=== PATIENT | female | born 1950 | race Caucasian/White ===

== ENCOUNTER 2018-02-11 15:17 | Emergency (ER) | payer MEDICARE | END 2018-02-11 16:06 | disposition home or self-care (01) | LOC: MADERS 15:17 | DX: M54.41 Lumbago with sciatica, right side (principal); M54.42 Lumbago with sciatica, left side; M62.830 Muscle spasm of back; I10 Essential (primary) hypertension; Z87.891 Personal history of nicotine dependence; Z79.899 Other long term (current) drug therapy | CPT/HCPCS: 99283 ==

== ENCOUNTER 2019-03-10 15:45 | Emergency (ER) | payer MEDICARE ==
[2019-03-10] MEDS ORDERED: Adacel (T-DAP) 0.5 ML SYRINGE ONE (16:19)
[2019-03-10] MEDS ORDERED: cefTRIAXone\\ROCEPHIN 1 GM VIAL ONE (16:19)
== END 2019-03-10 17:05 | disposition home or self-care (01) ==
LOC: MADERS 15:45
DX: S61.051A Open bite of right thumb without damage to nail, initial encounter (principal); S61.031A Puncture wound without foreign body of right thumb without damage to nail, initial encounter; I49.9 Cardiac arrhythmia, unspecified; I48.91 Unspecified atrial fibrillation; J44.9 Chronic obstructive pulmonary disease, unspecified; I10 Essential (primary) hypertension; Z85.830 Personal history of malignant neoplasm of bone; Z87.891 Personal history of nicotine dependence; Z85.118 Personal history of other malignant neoplasm of bronchus and lung; Z79.899 Other long term (current) drug therapy; W55.01XA Bitten by cat, initial encounter
CPT/HCPCS: 90471; 90715; 96372; J0696